=== PATIENT | male | born 1970 | race Caucasian/White ===

== ENCOUNTER 2021-08-13 04:57 | Observation (INO) | payer BC, SELFPAY ==
[2021-08-13] VITALS (13 sets, daily range): BP systolic 103–133; BP diastolic 60–100; PULSE 51–190; RESP 14–21; TEMP 36.2–37.1; O2SAT 95–100; BMI 30.4
--- NOTE | 2021-08-13 | ECHO_ITS ---
Patient Info Name: Tristan Hill Age: 51 years : 1970 Gender: Male Ht: 71 in Wt: 218 lbs BSA: 2.25 m2 HR: 66 bpm BP: 133 / 93 mmHg Heart Rhythm: Sinus Rhythm Technical Quality: Fair Exam Date: 08/13/2021 3:56 PM Exam Location: [facility] Pulmonary Patient Status: Outpatient Admit Date: 08/13/2021 Staff Ordering Physician: Arturo Kauffman MD Medical Planner: Nicole Collins RDCS Attending Provider: Navya Church DO Referring Physician: Daly HEAD; Exam Type: CA echo dop color flow w con Study Info Indications - svt/gfdui-ywdkmwiio-fxsuy Complete two-dimensional, color flow and Doppler transthoracic echocardiogram is performed with contrast to opacify the left ventricle and to improve the deliniation of the left ventricle endocardial borders. Contrast/Agitated Saline Contrast/Ag. Saline: Definity Amount: 3.00 ml Administered By: Nicole Collins RDCS Existing IV Access: Yes IV Access Condition: patent with no signs of infiltration Summary 1. Mild LV enlargement, borderline LVH; ejection fraction about 55%; normal diastolic function. No significant valvular abnormality. Trace TR, RVSP 28 mmHg. Left Ventricle Left ventricular chamber dimension is mildly enlarged. Left ventricular systolic function is normal, estimated at 55-60%. There is no increased left ventricular wall thickness. The left ventricular diastolic function is normal. Right Ventricle Right ventricular chamber dimension is normal. Right ventricular systolic function is normal. Left Atria Left atrial chamber dimension is normal. Right Atria Right atrial chamber dimension is normal. Aortic Valve The aortic valve is trileaflet. There is no aortic valve sclerosis. There is no aortic valve stenosis. There is no aortic valve regurgitation. Pulmonic Valve The pulmonic valve is normal. There is trace pulmonic regurgitation. Mitral Valve The mitral valve has normal leaflets. There is no mitral valve regurgitation. Tricuspid Valve The tricuspid valve leaflets are normal. There is trace tricuspid valve regurgitation. Pericardium/Pleural The pericardium appears epicardial fat pad. There is no pericardial effusion. Inferior Vena Cava Normal inferior vena cava with >50% collapse upon inspiration consistent with normal right atrial pressure, 10 mmHg. Aorta The aortic root size at the sinus of Valsalva is normal. The prox ascending aorta size is normal. Left Ventricular Outflow Tract Name Value Normal LVOT 2D LVOT Diameter 2.32 cm LVOT Doppler LVOT Peak Gradient 3 mmHg LVOT Mean Gradient 1 mmHg LVOT VTI 15.33 cm LVOT VTI/AV VTI Ratio 0.58 LVOT Stroke Volume 64.70 ml LVOT CO 5.44 l/min LVOT CI 2.42 L/min/m2 Pulmonic Valve Name
--- NOTE | ~2021-08-13 | XR_ITS ---
XR chest 2V DATE: 08/13/2021 06:03 INDICATION: Chest pain TECHNIQUE: PA and lateral views COMPARISON: 02/05/2016 2 view chest FINDINGS: Normal heart size. No hilar or mediastinal enlargement. No pulmonary infiltrate or consolid ation, pleural effusion or pulmonary vascular congestion or pneumothorax. Mild levoscoliosis of the thoracic spine. IMPRESSION: No active cardiopulmonary disease Reviewed, dictated and finalized at location A.
--- NOTE | 2021-08-13 05:03 | ECG_ITS ---
Measurements Intervals [place] Rate: 186 P: TN: 0 QRS: 259 QRSD: 98 T: 0 QT: 257 QTc: 453 Interpretive Statements SUPRAVENTRICULAR TACHYCARDIA POSSIBLE RIGHT VENTRICULAR HYPERTROPHY [SOME/ALL OF: PROMINENT R IN V1, LATE TRANSITION, RAD, JED, SSS] CRITICAL TEST RESULT NO PREVIOUS ECG AVAILABLE FOR COMPARISON Electronically Signed On 08-13-2021 15:29:41 CDT by Arturo Kauffman M.D.
[2021-08-13] MEDS: ADENOSINE IV SOLN 6 MG/2 ML VIAL IV PUSH (05:09)
[2021-08-13] MEDS: SODIUM CHLORIDE 0.9% IV 1,000 ML 999 ML (05:10)
[2021-08-13] MEDS: ASPIRIN 81 MG CHEWABLE TABLET 324 MG PO (05:14)
--- NOTE | 2021-08-13 05:19 | ECG_ITS ---
Measurements Intervals [place] Rate: 116 P: 47 W[place]: 160 QRS: -84 QRSD: 95 T: 5 QT: 317 QTc: 442 Interpretive Statements SINUS TACHYCARDIA POSSIBLE LEFT ATRIAL ENLARGEMENT [-0.1mV P-WAVE IN V1/V2] PATTERN CONSISTENT WITH PULMONARY DISEASE LEFT ANTERIOR FASCICULAR BLOCK [QRS AXIS <= -45, QR IN I, RS IN II] COMPARED TO ECG 08/13/2021 05:04:15 SINUS TACHYCARDIA NOW PRESENT Electronically Signed On 08-13-2021 15:29:56 CDT by Arturo Kauffman M.D.
[2021-08-13 05:22] LABS: Hematocrit 48.9 % (42.0-52.0); Mean Corpuscular HGB Conc 32.7 g/dl (32-36); Mean Corpuscular Hemoglobin 29.8 pg (26-34); Mean Corpuscular Volume 91.1 fl (80-100); Mean Platelet Volume 9.4 fl (7.4-10.4); Platelet Count Result 394 k/mm3 (150-375); Red Blood Count 5.37 M/mm3 (4.6-6.20); Red Cell Distribution Width 13.3 % (11.5-14.5); White Blood Count 21.5 K/mm3 (4.5-10.0)
[2021-08-13 05:31] LABS: Partial Thromboplastin Time 27.7 SECONDS (22.3-36.8); Prothrombin Time 12.5 Seconds (11.1-14.7)
[2021-08-13 05:33] LABS: Alanine Aminotransferase 36 U/L (6-50); Albumin Level 4.5 g/dL (3.5-5.1); Alkaline Phosphatase 80 U/L (38-126); Anion Gap 7 mmol/L (8-16); Aspartate Amino Transferase 28 U/L (17-59); Bilirubin,Total 0.1 mg/dL (0.2-1.3); Blood Urea Nitrogen 20 mg/dL (9-20); Calcium 9.2 mg/dL (8.4-10.2); Carbon Dioxide 25 mmol/L (22-30); Chloride 108 mmol/L (98-107); Estimated CRCL calculation 87 ml/min; Estimated Glomerular Filt Rate > 60; Glucose 178 mg/dL (65-110); Potassium 3.8 mmol/L (3.4-5.0); Sodium 140 mmol/L (137-145)
[2021-08-13 05:38] LABS: Band Neutrophils Percent 4 % (0-6); Eosinophils Absolute Manual 0.43 K/mm3 (0.02-0.5); Eosinophils Percent Manual 2 % (0-4); Lymphocytes Absolute Manual 3.44 K/mm3 (1.1-4.5); Monocytes Absolute Manual 1.07 K/mm3 (0.1-0.90); Monocytes Percent Manual 5 % (3-9); Neutrophils Absolute Manual 16.55 K/mm3 (1.3-6.7); Neutrophils Percent Manual 73 % (46-73); Total Cells Counted 100
[2021-08-13 05:39] LABS: Platelet Estimate Adequate (Adequate); Poikilocytosis 1+ (NORMAL)
[2021-08-13 05:57] LABS: Troponin I 0.059 ng/mL (0.000-0.034)
--- NOTE | 2021-08-13 06:20 | ED.GENADULT ---
HPI - General Adult General Chief complaint: Chest Pain Stated complaint: sob, possible heart attack, rapid heart beat Time Seen by Provider: 08/13/21 05:03 History of Present Illness HPI narrative: Patient is a 51-year-old male who presents ER with rapid heart rate and chest pain. Patient reports symptoms began around 3 AM. He feels racing the heart with pressure in his center chest moving up into his neck. No aggravating or alleviating factors. 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 Reports he did have a couple coffee this morning. No excessive caffeine use or abnormal sleep habits. No additional stimulants use. Reports he is in otherwise good health. No fevers or chills or sweats. Related Data Home Medications Medication Instructions Recorded Confirmed No Home Medications 07/17/21 07/17/21 Allergies Allergy/AdvReac Type Severity Reaction Status Date / Time No Known Allergies Allergy Verified 07/17/21 14:15 Review of Systems Review of Systems: All systems reviewed & are unremarkable except as noted in HPI and below Constitutional: Constitutional: Denies chills, Denies fatigue and Denies fever(s) ENT: Denies nasal congestion and Denies sore throat Cardiovascular: Cardiovascular: Reports chest pain, Reports rapid heart rate and Reports radiating jaw, neck or arm pain Respiratory: Respiratory: Denies cough, Denies dyspnea and Denies wheezing Gastrointestinal: Gastrointestinal: Denies abdominal pain, Denies nausea and Denies vomiting Neurologic: Denies syncope, Denies focal weakness and Denies numbness PMFSH Past Medical History Medical History BMI greater than 30 Lateral epicondylitis, left elbow Family History Family History Mother Hypertension Grandparent Hypertension Family history of malignant neoplasm of brain Social History Social History Smoking status: Current every day smoker Tobacco type: cigarettes Alcohol intake: never Exam Narrative: GENERAL: Well-appearing, well-nourished, and in no acute distress. HEAD: Normocephalic, atraumatic. EYES: PERRL and EOMI. CHEST: Clear to auscultation. No respiratory distress. HEART: Tachycardic and regular. Normal peripheral pulses. ABDOMEN: Soft, nontender, nondistended. EXTREMITIES: Normal range of motion. No edema. SKIN: Warm, dry, no rash. NEURO: Alert and oriented x3. PSYCH: Normal mood and affect. Course Course Emergency Course: Discussed case with Dr. Silver with cardiology. Recommends admission to hospitalist service given elevation with blood cell count. Will trend troponin level however he does not feel anticoagulation is warranted at this time given the patient's chest pain-free. Vital Signs Vital signs: Vital Signs Temperature 98.8 F 08/13/21 05:01 Pulse Rate 190 H 08/13/21 05:01 Respiratory Rate 20 08/13/21 05:01 Blood Pressure 120/100 H 08/13/21 05:01 Pulse Oximetry 100 08/13/21 05:01 Oxygen Delivery Room Air 08/13/21 05:01 Temperature 98.8 F 08/13/21 05:01 Pulse Rate 104 H 08/13/21 06:33 Respiratory Rate 18 08/13/21 06:33 Blood Pressure 109/71 08/13/21 06:33 Pulse Oximetry 97 08/13/21 06:33 Oxygen Delivery Room Air 08/13/21 05:01 Medical Decision Making Vital Signs Vital Signs: Vital Signs Temperature 98.8 F 08/13/21 05:01 Pulse Rate 190 H 08/13/21 05:01 Respiratory Rate 20 08/13/21 05:01 Blood Pressure 120/100 H 08/13/21 05:01 Pulse Oximetry 100 08/13/21 05:01 Oxygen Delivery Room Air 08/13/21 05:01 Temperature 98.8 F 08/13/21 05:01 Pulse Rate 104 H 08/13/21 06:33 Respiratory Rate 18 08/13/21 06:33 Blood Pressure 109/71 08/13/21 06:33 Pulse Oximetry 97 08/13/21 06:33 Oxygen Delivery Room Air 08/13/21
[2021-08-13] MEDS: SODIUM CHLORIDE 0.9% IV 1,000 ML 999 ML IV CONT (06:43)
--- NOTE | 2021-08-13 07:52 | PM.IMHP ---
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 Patient states that he felt a fluttering sensation in his chest this morning when his alarm went off to get out of bed around 3 or 4 morning. He said his heart was racing and followed with some pressure in his chest. In the ER, ECG was done showing a narrowed OK interval and Cardiology was consulted. Troponin was slightly elevated however cardiology thought this was likely secondary to the tachycardia and so anticoagulation was not initiated. He is currently chest pain-free, no shortness of breaths, heart rate is normal sinus rhythm in the 80s. He denies fevers or chills. No nausea vomiting or diarrhea. He is currently on no medications. Of note, the patient was recently on antibiotics for a sinus infection and developed C diff. last episode of diarrhea had previously been about 1-2 weeks ago. He did have a episode of diarrhea after eating coconut cream pie yesterday. [facility] Past Medical History Medical History BMI greater than 30 Lateral epicondylitis, left elbow Family History Family History Mother Hypertension Grandparent Hypertension Family history of malignant neoplasm of brain Social History Social History Years smoked: 36 Smoking status: Current every day smoker Tobacco type: cigarettes Alcohol intake: never Substance use: never Spiritual care concerns: No Meds Home Medications and Allergies Home Medications Medication Instructions Recorded Confirmed Type No Home Medications 07/17/21 08/13/21 History Allergies Allergy/AdvReac Type Severity Reaction Status Date / Time No Known Allergies Allergy Verified 07/17/21 14:15 Vital Signs Vital Signs - 24 hr 08/13/21 05:01 08/13/21 05:13 08/13/21 05:15 Temperature 98.8 F Pulse Rate 190 H 112 H 112 H Respiratory Rate 20 21 H 21 H Blood Pressure 120/100 H 128/99 H 124/86 Pulse Oximetry 100 98 97 Oxygen Delivery Room Air 08/13/21 05:30 08/13/21 06:33 08/13/21 07:15 Temperature Pulse Rate 113 H 104 H 102 H Respiratory Rate 19 18 14 Blood Pressure 118/85 109/71 103/78 Pulse Oximetry 95 97 99 Oxygen Delivery Exam Narrative: General: Patient resting comfortably in bed, no acute distress HEENT: Atraumatic, normocephalic, mucous membranes moist CV: Regular rate and rhythm, S1, S2, no murmurs rubs or gallops noted Lungs: Clear to auscultation bilaterally, no rales or crackles noted, no wheezes, good air entry Abdomen: Soft, nontender, nondistended Extremities: Normal to inspection, no edema noted Skin: No rashes noted, no lesions or wounds seen Psych: Euthymic, normal affect Neuro: Cranial nerves 2-12 grossly intact, strength 5/5 upper and lower extremities noted H&P: Results Labs Labs: Short CBC 08/13/21 Range/Units 05:07 WBC 21.5 H (4.5-10.0) K/mm3 Hgb 16.0 (14.0-18.0) g/dL Hct 48.9 (42.0-52.0) % Plt Count 394 H (150-375) k/mm3 BMP 08/13/21 05:07 Sodium 140 Potassium 3.8 Chloride 108 H Carbon Dioxide 25 BUN 20 Creatinine 1.20 Glucose 178 H Calcium 9.2 Cardiac Enzymes 08/13/21 Range/Units 05:07 Troponin I 0.059 H* (0.000-0.034) ng/mL Liver Function 08/13/21 Range/Units 05:07 Total Bilirubin 0.1 L (0.2-1.3) mg/dL AST 28 (17-59) U/L ALT 36 (6-50) U/L Alkaline Phosphatase 80 (38-126) U/L Albumin 4.5 (3.5-5.1) g/dL Assessment and Plan Assessment and plan (1) Elevated troponin: Code(s): R77.8 - Other specified abnormalities of plasma proteins Status: Acute Assessment and Plan: Likely secondary
[2021-08-13 08:38] LABS: Troponin I 0.088 ng/mL (0.000-0.034)
[2021-08-13] MEDS: ENOXAPARIN 40 MG/0.4 ML SYRINGE SUB-Q (09:47)
[2021-08-13 11:35] LABS: Troponin I 0.101 ng/mL (0.000-0.034)
--- NOTE | 2021-08-13 11:37 | ADMGEN ---
This patient, Tristan Hill Sr., was admitted to IMU Room 207-01. Patient/family oriented to hospital policies and general routines including ID bracelet, bed and alarms, visiting hours, pain management, procedures, bathroom and other care routines, personal items, smoking policy, room service/diet, and visiting hours. Information on how to activate the Rapid Response Team has been discussed. Patient/Family are encouraged to report perceived risks to care and to ask questions if they do not understand what they are told or what they should do.
--- NOTE | 2021-08-13 12:22 | ECG_ITS ---
Measurements Intervals [place] Rate: 60 P: 55 [place]: 110 QRS: -45 QRSD: 134 T: 121 QT: 446 QTc: 449 Interpretive Statements SINUS RHYTHM WITH SHORT WA INTERVAL VENTRICULAR PREEXCITATION/WPW COMPARED TO ECG 08/13/2021 05:11:43 SINUS RHYTHM NOW PRESENT VENTRICULAR PREEXCITATION NOW MANIFEST. ACCESSORY PATHWAY WAS CONCEALED DURING SVT EARLIER TODAY Electronically Signed On 08-13-2021 16:31:49 CDT by Arturo Kauffman M.D.
--- NOTE | 2021-08-13 14:48 | PM.CNCAR ---
Assessment and Plan Assessment and plan (1) Idbaa-Xzetaynzl-Flrhe (WPW) syndrome: Code(s): I45.6 - Pre-excitation syndrome Status: Acute (2) SVT (supraventricular tachycardia): Code(s): I47.1 - Supraventricular tachycardia Status: Acute Plan This is a 51-year-old man presenting with AV reciprocating tachycardia narrow QRS SVT this morning. Following cardioversion with adenosine his rhythm settled down and it now becomes manifest that he has an obvious accessory pathway. When he was tachycardic he was obviously conducting antegrade down the AV node and retrograde up the accessory pathway resulting in narrow QRS. In this situation I am going to recommend starting him on some metoprolol and recommend that he consult with an rehab office coordinator for the treatment of choice which would be ablating this accessory pathway. He understands this and has no other questions. I will try to get an echocardiogram done while he is in the hospital to is rule out any structural cardiac problems. He has not otherwise reporting any other cardiac symptoms I do not believe he needs an ischemic workup while he is in the hospital. For some reason a troponin level was drawn in the emergency room it was slightly elevated but I believe this is clearly attributable to the patient having a heart rate of 186 at the time of presentation that was probably going on for at least a couple of hours. Arturo Kauffman MD [facility] History of Present Illness History of Present Illness Consult date/time: 08/13/21 14:48 Reason For Visit: svt Narrative: This is a 51-year-old man who presented to the emergency room this morning with CIS sense of tachycardia/palpitations and some discomfort in the chest that he noticed at about 3:00 a.m. in the morning. 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 This morning when he has alarm went off any soda pop out of bed he states he felt unwell with a sense of lightheadedness. He went into the bathroom and then noticed that his pulse rate was rapid and so he went back to the bed and laid down and felt his pulse his apparently has a pulse oximeter and may recorded his heart rate to be over 180. Then the became concerned and got in the car and came to the emergency room here. Upon arrival he was found to be tachycardic and electrocardiogram showed a regular narrow QRS tachycardia with a heart rate of 186. He was given a dose of adenosine which converted him to sinus tachycardia and then as he slow down in the emergency room a subsequent EKG shows a wider QRS with a short FL interval an obvious delta waves/pre-excitation indicative of Vaikr-Vqkbqiift-Bbvhs syndrome. The patient states that a physician a number of years ago told him that by ECG he had Dihij-Peeytirzh-Lpmzb but it was asymptomatic and required no further treatment or evaluation. He has never had an episode like this previously in his life that he can recall. Review of Systems Constitutional: Constitutional: Reports no additional constitutional complaints Eyes: Eyes: Reports no additional eye complaints ENT: Reports system reviewed and no additional complaints, except as documented Cardiovascular: Cardiovascular: Reports as per HPI and Reports palpitations Respiratory: Respiratory: Reports no additional respiratory complaints Gastrointestinal: Gastrointestinal: Reports no additional gastrointestinal complaints Musculoskeletal: Musculoskeletal: Reports no additional musculoskeletal complaints Integumentary/Breasts: Skin/Breast: Reports system reviewed and no additional complaints, except as docu Neurologic: Reports system reviewed and no additional complaints, except as documented Endocrine: Endocrine: Reports no additional endocrine complaints Hematologic/Lymphatic: Hematologic/Lymphatic: Reports no additional hematologic/lymphatic complaints Allergic/Imm
[2021-08-13] MEDS: PERFLUTREN LIPID MICROSPHERES 1.5 ML VIAL DILUTED TO 10 ML TOTAL VOLUME IV PUSH (16:25)
--- NOTE | 2021-08-13 16:26 | IVDEFINITY ---
Prior to administration of IV Definity the patient was educated on the risks and benefits of the imaging enhancing agent including potential adverse side effects. The patient verbalized understanding. Allergies were verified. No exclusion criteria were identified and at least one of the following inclusion criteria were met: 1) physician request, 2) patient technically difficult to image (per the [place] [employer]ocardi[employer] guidelines of two or more segments not discernable within the apical view), or 3) questionable left ventricular function. ?
--- NOTE | 2021-08-13 18:41 | PC.NURSE ---
Notified Dr. Squires patient has brief moments of Osman into the high 40's, She said to continue with plan of care. Patient is not symptomatic.
[2021-08-13] MEDS: NICOTINE (*PBKC) 21 MG PATCH 1 PATCH TRANSDERM (20:33)
[2021-08-14] VITALS: PULSE 80
[2021-08-14 02:00] VITALS: PULSE 78
[2021-08-14 04:00] VITALS: BP 123/73; PULSE 49; PULSE 53; RESP 18; TEMP 36.4; O2SAT 99
[2021-08-14 06:00] VITALS: PULSE 61
[2021-08-14 08:00] VITALS: BP 132/74; PULSE 60; PULSE 79; RESP 16; TEMP 36.8; O2SAT 96
[2021-08-14] MEDS: METOPROLOL SUCCINATE EXT REL 50 MG TABCR PO (08:23)
[2021-08-14] MEDS: NICOTINE (*PBKC) 21 MG PATCH 1 PATCH TRANSDERM (08:24)
--- NOTE | 2021-08-14 09:13 | PM.PNCARD ---
Progress Note: A&P Assessment and Plan (1) Wghcm-Kwxbobtss-Hstbc (WPW) syndrome: Code(s): I45.6 - Pre-excitation syndrome Status: Acute (2) SVT (supraventricular tachycardia): Code(s): I47.1 - Supraventricular tachycardia Status: Acute Assessment and Plan: Back in sinus rhythm. Plan This is a 51-year-old man presenting with AV reciprocating tachycardia narrow QRS SVT this morning. Following cardioversion with adenosine his rhythm settled down and it now becomes manifest that he has an obvious accessory pathway. When he was tachycardic he was obviously conducting antegrade down the AV node and retrograde up the accessory pathway resulting in narrow QRS. In this situation I am going to recommend starting him on some metoprolol and recommend that he consult with an brush and broom clipper for the treatment. Patient wishes to be referred to [facility]. Referral to Dr. Benjamín Gutierrez electrophysiology at [facility]. This referral is already placed through [facility] system. Echocardiogram is pending. Patient is okay for discharge Subjective Date/time seen: 08/14/21 09:13 Date of service 08/14/2021 51-year-old admitted for SVT/WPW. Date of service 08/14/2021: Feels well today. No chest pain or shortness of breath. No palpitations. Review of Systems Constitutional: Constitutional: Reports no additional constitutional complaints Eyes: Eyes: Reports no additional eye complaints ENT: Reports system reviewed and no additional complaints, except as documented Cardiovascular: Cardiovascular: Reports as per HPI and Reports palpitations Respiratory: Respiratory: Reports no additional respiratory complaints Gastrointestinal: Gastrointestinal: Reports no additional gastrointestinal complaints Musculoskeletal: Musculoskeletal: Reports no additional musculoskeletal complaints Integumentary/Breasts: Skin/Breast: Reports system reviewed and no additional complaints, except as docu Neurologic: Reports system reviewed and no additional complaints, except as documented Endocrine: Endocrine: Reports no additional endocrine complaints and Reports palpitations Hematologic/Lymphatic: Hematologic/Lymphatic: Reports no additional hematologic/lymphatic complaints Allergic/Immunologic: Allergic/Immunologic: Reports no additional allergic/immunologic complaints Exam Const: General: comfortable and no acute distress Other: Pleasant white male relaxing visiting family no distress of any kind HENMT: Mouth: Yes moist mucous membranes Eyes: Sclera: sclerae normal Pupils: Equal, round and reactive pupils present Neck: Neck: supple and no JVD Resp: Effort & Inspection: normal respiratory effort Auscultation: clear to auscultation bilaterally Cardio: Rate: regular rate Rhythm: regular rhythm GI: Auscultation: normal bowel sounds Urinary Catheter: Urinary Catheter: patent and draining Skin: General skin exam: normal color Neuro: Cranial nerves: Yes Equal, round and reactive pupils present Other: Normal cognition Extrem: General: normal to inspection Other: No edema normal distal pulses Objective Data Vital Signs Vital Signs: Vital Signs - 24 hr 08/13/21 12:00 08/13/21 12:00 08/13/21 12:00 Temperature 36.2 C L Pulse Rate 72 92 Respiratory Rate 16 Blood Pressure 133/93 H Pulse Oximetry 99 99 Oxygen Delivery Room Air 08/13/21 16:00 08/13/21 14:00 08/13/21 16:00 Temperature 36.8 C Pulse Rate 90 73 64 Respiratory Rate 16 Blood Pressure 132/79 Pulse Oximetry 96 Oxygen Delivery 08/13/21 16:00 08/13/21 18:00 08/13/21 20:00 Temperature 36.7 C Pulse Rate 58 L 90 Respiratory Rate 18 Blood Pressure 123/77 Pulse Oximetry 99 97 Oxygen Delivery Room Air 08/13/21 20:00 08/13/21 20:00 08/13/21 22:00 Temperature Pulse Rate 51 L 56 L Respiratory Rate Blood Pressure Pulse Oximetry Oxygen Delivery Room Air 08/13/21 23:51
[2021-08-14 10:00] VITALS: PULSE 72
--- NOTE | 2021-08-14 14:13 | PM.DS ---
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 He went to the ER with his racing heart was found to have a slightly elevated troponin and a shortened [place] interval. In the ER, he was given adenosine that slowed his rate enough to show the obvious delta waves. This was thought to be an exacerbation of his Rebsa-Blhdkslhn-Eodjt syndrome cardiology was consulted. Patient was started on a beta-boo and remained stable throughout his stay here. All symptoms resolved. He was rate controlled on metoprolol. He was discharged in good condition with close outpatient follow-up with electrophysiology and to continue his metoprolol. Status at Discharge Functional status at discharge: independent ambulation Overall status at discharge: patient is back to baseline Time Spent with Patient Time attestation: Total time spent providing and/or coordinating discharge services: Time spent: Greater than 30 minutes Exam Narrative: General: Patient resting comfortably in bed, no acute distress HEENT: Atraumatic, normocephalic, mucous membranes moist CV: Regular rate and rhythm, S1, S2, no murmurs rubs or gallops noted Lungs: Clear to auscultation bilaterally, no rales or crackles noted, no wheezes, good air entry Abdomen: Soft, nontender, nondistended Extremities: Normal to inspection, no edema noted Skin: No rashes noted, no lesions or wounds seen Psych: Euthymic, normal affect Neuro: Cranial nerves 2-12 grossly intact, strength 5/5 upper and lower extremities noted Discharge Plan Discharge Attending physician on discharge: Carleen Squires Consulting providers: Valentín Silver Discharging Clinician: Carleen Squires Patient Disposition: Home, Self-Care Activity: as tolerated Diet: as tolerated Discharge Instructions: Follow up with Dr. Gutierrez, Assignment Officer at [facility]. You will need to call to schedule an appointment. Their number is [phone] Patient Instructions: Antibiotic Form, Supraventricular Tachycardia (DC), Nmbwz-Lqetyuikl-Ppjvi Syndrome (GEN) Stand Alone Forms: General Discharge Information Follow-up/Referrals: Valentín Silver MD [Physician] - Discharge Medications: New metoprolol succinate 50 mg Tablet Extended Release 24 Hr 50 mg PO QAM Qty: 30 0RF Date of admission: 08/13/21 06:43 Primary Care Provider: Jamar Wheat Admitting Provider: Navya Church Attending physician on admission: Navya Church Condition: Stable
== END 2021-08-14 10:35 | disposition home or self-care (01) ==
LOC: ANHED 07:19 → ANHIMU 11:36
PROVIDERS: Admitting Provider Student in an Organized Health Care Education/Training Program; Emergency Provider Emergency Medicine; PCP Family Medicine; Visit Provider Student in an Organized Health Care Education/Training Program
DX: I45.6 Pre-excitation syndrome (principal); I47.1 Supraventricular tachycardia; R77.8 Other specified abnormalities of plasma proteins; R07.9 Chest pain, unspecified; F17.210 Nicotine dependence, cigarettes, uncomplicated
CPT/HCPCS: 36415; 71046; 80053; 84484; 85025; 85610; 85730; 93005; 96361; 96372; 96374; 96375; 99291; A9270; C8929; G0378; J0153; J1650; J7030; Q9957

== ENCOUNTER 2021-08-16 11:21 | Outpatient (CLI) | payer BC, SELFPAY ==
[2021-08-16 11:47] LABS: Basophils Absolute Auto 0.1 K/mm3 (0.0-0.1); Basophils Percent Auto 0.7 % (0.2-1.2); Eosinophils Absolute Auto 0.7 K/mm3 (0-0.3); Eosinophils Percent Auto 5.9 % (0-4.4); Hematocrit 47.5 % (42.0-52.0); Hemoglobin 15.6 g/dL (14.0-18.0); Immature Granulocyte Absolute 0.04 K/mm3 (0.00-0.031); Immature Granulocyte Percent A 0.3 % (0-0.5); Lymphocytes Absolute Auto 3.67 K/mm3 (0.9-3.2); Mean Corpuscular HGB Conc 32.8 g/dl (32-36); Mean Corpuscular Hemoglobin 29.8 pg (26-34); Mean Corpuscular Volume 90.6 fl (80-100); Mean Platelet Volume 9.2 fl (7.4-10.4); Monocytes Absolute Auto 0.8 K/mm3 (0.1-0.6); Monocytes Percent Auto 6.7 % (2.6-8.5); Neutrophils Absolute Auto 6.6 K/mm3 (1.3-6.7); Neutrophils Percent Auto 55.4 % (45.5-73.1); Platelet Count Result 338 k/mm3 (150-375); Red Blood Count 5.24 M/mm3 (4.6-6.20); White Blood Count 11.8 K/mm3 (4.5-10.0)
[2021-08-16 11:58] LABS: Anion Gap 7 mmol/L (8-16); Blood Urea Nitrogen 15 mg/dL (9-20); Calcium 9.3 mg/dL (8.4-10.2); Carbon Dioxide 29 mmol/L (22-30); Chloride 104 mmol/L (98-107); Cholesterol 191 mg/dL (0-200); Estimated Glomerular Filt Rate > 60; Glucose 98 mg/dL (65-110); HDL Direct 34 mg/dL; Potassium 4.1 mmol/L (3.4-5.0); Sodium 140 mmol/L (137-145); Triglycerides 102 mg/dL (<150)
[2021-08-16 12:09] LABS: LDL Cholesterol Direct 117 mg/dL
[2021-08-16 12:29] LABS: Prostate Specific Antigen 1.2 ng/mL (< OR = 4.0)
== END 2021-08-16 11:22 | disposition home or self-care (01) ==
LOC: ANHLAB 11:23
PROVIDERS: PCP Family Medicine; Visit Provider Family Medicine
DX: Z13.220 Encounter for screening for lipoid disorders (principal); I45.6 Pre-excitation syndrome; Z12.5 Encounter for screening for malignant neoplasm of prostate
CPT/HCPCS: 36415; 80048; 80061; 84153; 84443; 85025; G0103

== ENCOUNTER 2021-12-06 03:00 | Inpatient (IN) | payer BC, SELFPAY ==
[2021-12-06] VITALS (12 sets, daily range): BP systolic 124–141; BP diastolic 72–95; PULSE 79–120; RESP 16–20; TEMP 36.6–37.5; O2SAT 93–99
--- NOTE | 2021-12-06 | ECHO_ITS ---
Patient Info Name: Tristan Hill Age: 51 years : 1970 Gender: Male Ht: 70 in Wt: 214 lbs BSA: 2.22 m2 HR: 91 bpm BP: 131 / 95 mmHg Heart Rhythm: Sinus Rhythm Technical Quality: Fair Exam Date: 12/06/2021 1:01 PM Exam Location: [facility] Patient Status: Inpatient Admit Date: 12/06/2021 Staff Ordering Physician: Avery Briceno MD [employer] Rolling Machine Operator: Nicole Collins RDCS Attending Provider: Avery Briceno MD Exam Type: CA echo limited w contrast Study Info Indications - elevated troponin Limited two-dimensional transthoracic echocardiogram is performed with contrast. Contrast/Agitated Saline Contrast/Ag. Saline: Definity Amount: 2.00 ml Administered By: Nicole Collins RDCS Existing IV Access: Yes IV Access Condition: patent with no signs of infiltration Summary 1. Limited study done. 2. Left ventricular systolic function is normal, estimated at 55-60%. 3. Left ventricular chamber dimension is mildly enlarged. 4. Right ventricular systolic function is normal. 5. There is mild tricuspid valve regurgitation. Left Ventricle Left ventricular chamber dimension is mildly enlarged. Left ventricular systolic function is normal, estimated at 55-60%. There is no increased left ventricular wall thickness. Right Ventricle Right ventricular chamber dimension is normal. Right ventricular systolic function is normal. Left Atria Left atrial chamber dimension is normal. Right Atria Right atrial chamber dimension is normal. Aortic Valve The aortic valve is not well visualized. Mitral Valve The mitral valve has not well visualized. Tricuspid Valve The tricuspid valve leaflets are not well visualized. There is mild tricuspid valve regurgitation. Pericardium/Pleural The pericardium appears epicardial fat pad. There is no pericardial effusion. Tricuspid Valve Name Value Normal TV Regurgitation Doppler TR Peak Velocity 189 cm/s TR Peak Gradient 14 mmHg Estimated PAP/RSVP RV Systolic Pressure 24 mmHg <36 Ventricles Name Value Normal LV Dimensions 2D/MM IVS Diastolic Thickness (2D) 1.0 cm 0.6-1.0 LVID Diastole (2D) 5.5 cm 4.2-5.8 LVIW Diastolic Thickness (2D) 1.0 cm 0.6-1.0 LVID Systole (2D) 3.8 cm 2.5-4.0 LV Mass (2D Cubed) 212.05 g 88.00-224.00 LV Mass Index (2D Cubed) 96 g/m2 49-115 Relative Wall Thickness (2D) 0.36 LV Fractional Shortening/Ejection Fraction 2D/MM LV Fractional Shortening (2D) 31 % 25-43 LV EF (2D Teicholz) 57 % 52-72 LV Diastolic
--- NOTE | ~2021-12-06 | US_ITS ---
EXAMINATION: US venous doppler [facility] DATE: 12/07/2021 08:49 INDICATION: Chest pain. Acute pulmonary emboli. TECHNIQUE: Grayscale ultrasound images without and with compression and Doppler ultrasound images of the bilateral lower extremity veins were obtained. COMPARISON: None. FINDINGS: The visualized portions of right common femoral vein, profunda (deep) femoral vein, femoral vein, pop liteal vein, peroneal veins, posterior tibial veins, and greater saphenous vein outflow are patent. The visualized portions of left common femoral vein, profunda femoral vein, femoral vein, popliteal v ein, peroneal veins, posterior tibial veins, and greater saphenous vein outflow are patent. IMPRESSION: 1. No deep venous thrombosis. Reviewed, dictated and finalized at location D.
--- NOTE | ~2021-12-06 | CT_ITS ---
EXAMINATION: CTA chest PE protocol DATE: 12/06/2021 06:15 INDICATION: Severe sharp right-sided chest pain radiating to the back. TECHNIQUE: Computed tomography (CT) pulmonary angiogram of the chest was performed with 100 mL Omnipa que-350 intravenous contrast. Additional 3D reconstructions utilizing coronal maximum intensity proje ction (MIP) were performed. The dose-length product was 768.78 mGy-cm. COMPARISON: None FINDINGS: Excellent contrast opacification of the pulmonary arteries. There is mild streak artifact from dense contrast in the superior vena cava and right atrium. Mild scattered respiratory motion artifact which does not significantly limit evaluation. There pulmonary arterial filling defects consistent with pu lmonary emboli in the lateral basilar and posterior basilar pulmonary arteries with complete occlusio n of the. The support more peripheral subsegmental pulmonary arteries in both segments. Geographic re gion of groundglass opacity in the periphery of the affected segments which could represent atelectas is or secondary pulmonary infarct. There is an additional round and discoid atelectasis at the latera l basilar segment of the right lower lobe containing a few small calcified nodules consistent with ol d granulomatous disease. No other pulmonary emboli identified in the remainder of the lungs. Mild emp hysema is seen at the apices. Tiny right pleural effusion. Heart size is normal. There is no leftward bowing of the ventricular septum to suggest right heart strain. No pericardial effusion. Thoracic ao rta is normal in caliber with no dissection. Mild likely reactive right hilar lymphadenopathy. Small sliding-type hiatal hernia. Diffuse hepatic steatosis. Schmorl's nodes and mild anterior wedging at T 4 and T5 as well as T11 and T12. IMPRESSION: 1. Pulmonary emboli in the posterior basilar and lateral basilar segments of the right lower lobe wit h associated atelectasis and possible pulmonary infarct in the affected segments. 2. Likely secondary tiny right pleural effusion and mild likely reactive right hilar lymphadenopathy. Reviewed, dictated and finalized at location A. IMPRESSION: 1. Pulmonary emboli in the posterior basilar and lateral basilar segments of th e right lower lobe with associated atelectasis and possible pulmonary infarct i n the affected segments. 2. Likely secondary tiny right pleural effusion and mild likely reactive right hilar lymphadenopathy.
--- NOTE | ~2021-12-06 | XR_ITS ---
EXAMINATION: XR chest 1V portable DATE: 12/06/2021 05:05 INDICATION: Right-sided chest pain post heart ablation TECHNIQUE: frontal view of the chest was obtained. COMPARISON: Chest radiograph dated 08/13/[address] dated 12/06/2021 FINDINGS: Mild streaky opacities at the lateral right lung base which correspond to a region of atelectasis on the prior CT potentially related to right lower lobar pulmonary emboli also evident on the prior CT. Remainder of the lungs are clear. No pulmonary edema, pneumothorax or discernible pleural effusion. T he cardiomediastinal silhouette is normal. IMPRESSION: 1. Mild atelectasis at the right lung base which may be related to the presence of pulmonary emboli i n the basilar right lower lobe seen on subsequent CT. Reviewed, dictated and finalized at location A. IMPRESSION: 1. Mild atelectasis at the right lung base which may be related to the presence of pulmonary emboli in the basilar right lower lobe seen on subsequent CT.
--- NOTE | 2021-12-06 03:06 | ECG_ITS ---
Measurements Intervals [place] Rate: 120 P: 53 MA: 159 QRS: 251 QRSD: 94 T: 4 QT: 305 QTc: 433 Interpretive Statements SINUS TACHYCARDIA COMPARED TO ECG 08/13/2021 12:35:58 SINUS TACHYCARDIA NOW PRESENT VENTRICULAR PREEXCITATION NO LONGER SEEN Electronically Signed On 12-06-2021 17:17:55 CDT by Daiana Esparza M.D.
[2021-12-06 05:07] LABS: Basophils Absolute Auto 0.1 K/mm3 (0.0-0.1); Basophils Percent Auto 0.4 % (0.2-1.2); Eosinophils Absolute Auto 0.2 K/mm3 (0-0.3); Eosinophils Percent Auto 1.5 % (0-4.4); Hematocrit 47.6 % (42.0-52.0); Hemoglobin 15.7 g/dL (14.0-18.0); Immature Granulocyte Absolute 0.07 K/mm3 (0.00-0.031); Immature Granulocyte Percent A 0.4 % (0-0.5); Lymphocytes Absolute Auto 2.24 K/mm3 (0.9-3.2); Lymphocytes Percent Auto 14.3 % (18.3-44.2); Mean Corpuscular Hemoglobin 29.5 pg (26-34); Mean Corpuscular Volume 89.5 fl (80-100); Monocytes Absolute Auto 1.3 K/mm3 (0.1-0.6); Monocytes Percent Auto 8.1 % (2.6-8.5); Neutrophils Absolute Auto 11.8 K/mm3 (1.3-6.7); Neutrophils Percent Auto 75.3 % (45.5-73.1); Platelet Count Result 309 k/mm3 (150-375); Red Blood Count 5.32 M/mm3 (4.6-6.20); Red Cell Distribution Width 13.2 % (11.5-14.5); White Blood Count 15.6 K/mm3 (4.5-10.0)
[2021-12-06 05:21] LABS: Alanine Aminotransferase 21 U/L (6-50); Albumin Level 4.6 g/dL (3.5-5.1); Alkaline Phosphatase 65 U/L (38-126); Anion Gap 11 mmol/L (8-16); Aspartate Amino Transferase 21 U/L (17-59); Bilirubin,Total 0.6 mg/dL (0.2-1.3); Blood Urea Nitrogen 12 mg/dL (9-20); Calcium 9.7 mg/dL (8.4-10.2); Carbon Dioxide 28 mmol/L (22-30); Chloride 102 mmol/L (98-107); Estimated CRCL calculation 90 ml/min; Estimated Glomerular Filt Rate > 60; Glucose 126 mg/dL (65-110); Potassium 4.3 mmol/L (3.4-5.0); Sodium 141 mmol/L (137-145)
[2021-12-06 05:37] LABS: NT Pro B Type Natriuretic Pept 82 pg/mL (5-100); Troponin I 0.051 ng/mL (0.000-0.034)
[2021-12-06 05:43] LABS: D Dimer 0.69 ug/mL (<0.48)
--- NOTE | 2021-12-06 06:05 | ED.GENADULT ---
HPI - General Adult General Chief complaint: Unspecified Stated complaint: rt flank pain Time Seen by Provider: 12/06/21 04:33 History of Present Illness HPI narrative: 51-year-old male with history of WPW with recent ablation at [place] 3 days ago presents with 1 day of severe pain to his right chest, which seems to radiate to his back, with difficulty breathing especially with deep breaths. Related Data Allergies Allergy/AdvReac Type Severity Reaction Status Date / Time No Known Allergies Allergy Verified 08/16/21 08:03 Review of Systems Review of Systems: CONST: No fever. HEENT: No sore throat C/V: Right-sided chest pain RESP: Difficulty breathing GI: No abdominal pain : No dysuria. M/S: No joint pain. SKIN: No rash. NEURO: [No focal numbness or weakness] PSYCH: [No depression] [facility] Past Medical History Medical History (Updated 12/06/21 @ 07:23 by Ju Coyne MD) BMI 29.0-29.9,adult BMI greater than 30 Lateral epicondylitis, left elbow Surgical History Surgical History (Updated 12/06/21 @ 06:07 by Ju Coyne MD) H/O cardiac radiofrequency ablation Family History Family History Mother Hypertension Grandparent Hypertension Family history of malignant neoplasm of brain Social History Social History Years smoked: 36 Smoking status: Current every day smoker (1 1/2 ppd) Tobacco type: cigarettes Additional smoking assessment comments: pt has cut back to about 1-2 a day Alcohol intake: never Substance use: never Spiritual care concerns: No Exam Narrative: EXAMINATION OF ORGAN SYSTEMS/BODY AREAS: Constitutional: Vital signs per nursing GENERAL: Appears slightly uncomfortable in bed HEAD: Normal with no signs of head trauma. EYES: EOMI, conjunctiva normal ENT: Hearing grossly intact LUNGS: Nonlabored breathing; clear to auscultation bilaterally HEART: Tachycardic ABD: [Soft], [nontender to palpation] EXT: Normal range of motion; normal radial pulses bilaterally and pedal pulses bilaterally SKIN: [No rashes or lesions.] NEURO: [Alert and oriented x 3. No gross focal sensory or strength deficits.] PSYCH: Normal affect Course Vital Signs Vital signs: Vital Signs Temperature 97.9 F 12/06/21 03:15 Pulse Rate 120 H 12/06/21 03:15 Respiratory Rate 18 12/06/21 03:15 Blood Pressure 141/82 H 12/06/21 03:15 Pulse Oximetry 97 12/06/21 03:15 Oxygen Delivery Room Air 12/06/21 03:15 Temperature 97.9 F 12/06/21 03:15 Pulse Rate 90 12/06/21 07:18 Respiratory Rate 18 12/06/21 07:18 Blood Pressure 125/85 12/06/21 07:18 Pulse Oximetry 97 12/06/21 07:18 Oxygen Delivery Room Air 12/06/21 03:15 Medical Decision Making MDM Narrative Medical decision making narrative: ED COURSE AND MEDICAL DECISION MAKIN-year-old male presenting with chest pain. EKG done in triage negative for acute ischemic changes. Cardiac workup is initiated. EKG: Performed in triage and interpreted by me. Sinus tachycardia. Rate 120. Normal axis. SD normal. QRS duration normal. QTc normal. No pathologic Q waves. No ST segment elevation or depression to suggest acute ischemia. Differential includes ACS/DE, post ablation complication, PE, dissection, pneumonia. Labs notable for elevated D-dimer and troponin, possibly secondary to ablation, CTA chest is ordered, aspirin provided. CT-PE notable for PE with infarcts; d/w hospitalist for admission, lovenox started. Vital Signs Vital Signs: Vital Signs Temperature 97.9 F 12/06/21 03:15 Pulse Rate 120 H 12/06/21 03:15 Respiratory Rate 18 12/06/21 03:15 Blood Pressure 141/82 H 12/06/21 03:15 Pulse Oximetry 97 12/06/21 03:15 Oxygen Delivery Room Air 12/06/21 03:15 Temperature 97.9 F 12/06/21 03:15 Pulse Rate 90 12/06/21 07:18 Respiratory Rate 18 12/06/21 07:18 Blood Pressure 125/85 12/06
[2021-12-06 06:39] LABS: SARS-CoV-2 RNA PCR Negative
[2021-12-06] MEDS: ASPIRIN 81 MG CHEWABLE TABLET 324 MG PO (07:19)
[2021-12-06] MEDS: MORPHINE SULFATE (*CRX) 4 MG/ML INJ IV PUSH (07:19)
[2021-12-06 07:41] LABS: Troponin I 0.052 ng/mL (0.000-0.034)
[2021-12-06] MEDS: LACTATED RINGERS 1,000 ML 999 ML IV CONT (07:41)
[2021-12-06] MEDS: ENOXAPARIN 100 MG/ML SYRINGE SUB-Q ×2 (07:42→20:43)
--- NOTE | 2021-12-06 09:34 | ADMGEN ---
This patient, Tristan Hill Sr., was admitted to IMU Room 231-01 AT 0830. Patient/family oriented to hospital policies and general routines including ID bracelet, bed and alarms, visiting hours, pain management, procedures, bathroom and other care routines, personal items, smoking policy, room service/diet, and visiting hours. Information on how to activate the Rapid Response Team has been discussed. Patient/Family are encouraged to report perceived risks to care and to ask questions if they do not understand what they are told or what they should do.
[2021-12-06] MEDS: HYDROcodone/acetaminophen (*CRX) 5-325 MG TABLET 1 TAB PO (11:57)
--- NOTE | 2021-12-06 12:59 | PM.IMHP ---
H&P: HPI History of Present Illness Date/Time: 12/06/21 12:59 Chief Complaint: Right flank pain Narrative: This is a 51 year old male patient who had a ambulation proximally 3 days ago at [place] for WPW. The patient stated that he had right shoulder pain afterwards but he thought that it was just the way that he had been laying on the table. Last night he started to have severe right chest pain it radiated to his back and is having difficulty breathing and taking deep breaths. The only medication that the patient takes now as aspirin. He had been on metoprolol for the WPW but was taken off of that since he had the ablation. Patient's D-dimer was only mildly elevated at 0.69. His troponin is 0.05 to however patient appears to be chronically elevated and this appears to be his baseline. The patient was negative for COVID. Chest x-ray was read as mild atelectasis at the right lung bases which may recur be related to the presence of pulmonary emboli in the basilar right lower lobe seen on subsequent CT. Chest CT was read as pulmonary emboli in the posterior basilar and lateral basilar segments of the right lower lobe with associated atelectasis and possible pulmonary infarct in the affected segments. Likely secondary tiny right pleural effusion and mild likely reactive right hilar lymphadenopathy. An echo has been performed but her awaiting the official read. The patient was started on subcu Lovenox and given morphine in the emergency room. The patient was given IV fluids and an aspirin as well. The patient initially was admitted to observation but has been changed to inpatient on the date of service of 12/06/2021. Review of Systems Review of Systems: See HPI All systems reviewed & are unremarkable except as noted in HPI and below Constitutional: Constitutional: Reports as per HPI and Reports no additional constitutional complaints Eyes: Eyes: Reports as per HPI and Reports no additional eye complaints ENT: Reports system reviewed and no additional complaints, except as documented and Reports Normal hearing present Cardiovascular: Cardiovascular: Reports no additional cardiovascular complaints Respiratory: Respiratory: Reports no additional respiratory complaints and Reports no additional respiratory complaints Gastrointestinal: Gastrointestinal: Reports as per HPI and Reports no additional gastrointestinal complaints Musculoskeletal: Musculoskeletal: Reports no additional musculoskeletal complaints Integumentary/Breasts: Skin/Breast: Reports system reviewed and no additional complaints, except as docu and Reports as per HPI Neurologic: Reports system reviewed and no additional complaints, except as documented, Reports as per HPI and Reports Normal hearing present Psychiatric: Psychiatric: Reports no additional psychiatric complaints and Reports as per HPI Endocrine: Endocrine: Reports no additional endocrine complaints Hematologic/Lymphatic: Hematologic/Lymphatic: Reports no additional hematologic/lymphatic complaints Allergic/Immunologic: Allergic/Immunologic: Reports no additional allergic/immunologic complaints [facility] Past Medical History Medical History (Updated 12/06/21 @ 16:28 by Catrina Renteria NP) BMI 29.0-29.9,adult BMI greater than 30 Elevated troponin Lateral epicondylitis, left elbow Qgkuz-Mdtvriqzv-Fndbt (WPW) syndrome Surgical History Surgical History (Updated 12/06/21 @ 16:29 by Catrina Renteria NP) H/O cardiac radiofrequency ablation History of tonsillectomy and adenoidectomy History of uvulectomy Family History Family History Mother Hypertension Grandparent Hypertension Family history of malignant neoplasm of brain Social History Social History (Updated 12/06/21 @ 16:30 by Catrina Renteria NP) Social History: The patient is and lives with his . They have 2 children. 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 He rarely drinks a
[2021-12-06] MEDS: PERFLUTREN LIPID MICROSPHERES 1.5 ML VIAL DILUTED TO 10 ML TOTAL VOLUME IV PUSH (13:10)
--- NOTE | 2021-12-06 13:10 | IVDEFINITY ---
Prior to administration of IV Definity the patient was educated on the risks and benefits of the imaging enhancing agent including potential adverse side effects. The patient verbalized understanding. Allergies were verified. No exclusion criteria were identified and at least one of the following inclusion criteria were met: 1) physician request, 2) patient technically difficult to image (per the [place] [employer]chocardi[employer] guidelines of two or more segments not discernable within the apical view), or 3) questionable left ventricular function. ?
--- NOTE | 2021-12-06 13:35 | PCCARD ---
Echo exam modified to Limited echo. Spoke to Connie and Limited echo exam approved,per: Catrina Renteria. Nicole Collins
[2021-12-06] MEDS: MORPHINE SULFATE (*CRX) 2 MG/ML INJ IV PUSH (14:20)
[2021-12-06 17:54] LABS: Troponin I 0.039 ng/mL (0.000-0.034)
[2021-12-06] MEDS: MORPHINE SULFATE (*CRX) 2 MG/ML INJ 4 MG IV PUSH (20:37)
[2021-12-07] VITALS (12 sets, daily range): BP systolic 125–159; BP diastolic 78–98; PULSE 80–124; RESP 16–22; TEMP 36.3–37.4; O2SAT 94–99
[2021-12-07] MEDS: HYDROcodone/acetaminophen (*CRX) 5-325 MG TABLET 1 TAB PO ×3 (00:12→17:38)
[2021-12-07] MEDS: MORPHINE SULFATE (*CRX) 2 MG/ML INJ 4 MG IV PUSH ×3 (02:57→11:08)
[2021-12-07 04:36] LABS: Basophils Percent Auto 0.3 % (0.2-1.2); Eosinophils Absolute Auto 0.1 K/mm3 (0-0.3); Eosinophils Percent Auto 0.3 % (0-4.4); Hematocrit 42.4 % (42.0-52.0); Hemoglobin 14.3 g/dL (14.0-18.0); Immature Granulocyte Absolute 0.06 K/mm3 (0.00-0.031); Immature Granulocyte Percent A 0.4 % (0-0.5); Lymphocytes Absolute Auto 2.22 K/mm3 (0.9-3.2); Mean Corpuscular HGB Conc 33.7 g/dl (32-36); Mean Corpuscular Hemoglobin 30.1 pg (26-34); Mean Corpuscular Volume 89.3 fl (80-100); Mean Platelet Volume 8.9 fl (7.4-10.4); Monocytes Absolute Auto 1.4 K/mm3 (0.1-0.6); Monocytes Percent Auto 9.6 % (2.6-8.5); Neutrophils Percent Auto 74.4 % (45.5-73.1); Platelet Count Result 285 k/mm3 (150-375); Red Blood Count 4.75 M/mm3 (4.6-6.20); Red Cell Distribution Width 13.1 % (11.5-14.5); White Blood Count 14.8 K/mm3 (4.5-10.0)
[2021-12-07 05:15] LABS: Alanine Aminotransferase 135 U/L (6-50); Albumin Level 4.3 g/dL (3.5-5.1); Alkaline Phosphatase 88 U/L (38-126); Anion Gap 8 mmol/L (8-16); Aspartate Amino Transferase 92 U/L (17-59); Bilirubin,Total 1.2 mg/dL (0.2-1.3); Blood Urea Nitrogen 12 mg/dL (9-20); CRP 16.2 mg/dL (<1.0); Calcium 9.2 mg/dL (8.4-10.2); Carbon Dioxide 26 mmol/L (22-30); Chloride 101 mmol/L (98-107); Estimated CRCL calculation 90 ml/min; Estimated Glomerular Filt Rate > 60; Glucose 119 mg/dL (65-110); Potassium 3.9 mmol/L (3.4-5.0); Sodium 135 mmol/L (137-145)
[2021-12-07] MEDS: ENOXAPARIN 100 MG/ML SYRINGE SUB-Q (09:07)
[2021-12-07] MEDS: ASPIRIN 81 MG CHEWABLE TABLET PO (09:07)
[2021-12-07] MEDS: ENOXAPARIN 60 MG/0.6 ML SYRINGE SUB-Q (10:39)
--- NOTE | 2021-12-07 14:56 | PM.IMPN ---
Progress Note: A&P Assessment and Plan (1) Pulmonary embolism: Code(s): I26.99 - Other pulmonary embolism without acute cor pulmonale Status: Acute Assessment and Plan: -most likely provoked by the radiofrequency ablation for his wPW that he had approximately 3 days ago. -continue with subQ Lovenox for now. Will switch it to Eliquis. -troponins were elevated but it appears that he is at his baseline. -a limited echo was ordered today. It was read as the following 1. Limited study done. ? 2. Left ventricular systolic function is normal, estimated at 55-60%. ? 3. Left ventricular chamber dimension is mildly enlarged. ? 4. Right ventricular systolic function is normal. ? 5. There is mild tricuspid valve regurgitation. Last echo on 08/13 was read as a following 1. Mild LV enlargement, borderline LVH; ejection fraction about 55%; normal diastolic function.? No significant valvular abnormality.? Trace TR, RVSP 28 mmHg. (2) Elevated troponin: Code(s): R77.8 - Other specified abnormalities of plasma proteins Status: Acute Assessment and Plan: -could be related to the PE. -however this appears to be chronic and he is at his baseline. -continue to trend. Plan # pleuritic chest pain still intractable. IV p.r.n.. Increase [place] to 7.5 Subjective Date/time seen: 12/07/21 14:56 Interval history: This is a 51 year old male patient who had a ambulation proximally 3 days ago at [place] for WPW.? The patient stated that he had right shoulder pain afterwards but he thought that it was just the way that he had been laying on the table.? Last night he started to have severe right chest pain it radiated to his back and is having difficulty breathing and taking deep breaths.? The only medication that the patient takes now as aspirin.? He had been on metoprolol for the WPW but was taken off of that since he had the ablation.? Patient's D-dimer was only mildly elevated at 0.69.? His troponin is 0.05 to however patient appears to be chronically elevated and this appears to be his baseline.? The patient was negative for COVID.? Chest x-ray was read as mild atelectasis at the right lung bases which may recur be related to the presence of pulmonary emboli in the basilar right lower lobe seen on subsequent CT.? Chest CT was read as pulmonary emboli in the posterior basilar and lateral basilar segments of the right lower lobe with associated atelectasis and possible pulmonary infarct in the affected segments.? Likely secondary tiny right pleural effusion and mild likely reactive right hilar lymphadenopathy.? An echo has been performed but her awaiting the official read.? The patient was started on subcu Lovenox and given morphine in the emergency room.? The patient was given IV fluids and an aspirin as well.? The patient initially was admitted to observation but has been changed to inpatient on the date of service of 12/06/2021. Review of Systems Review of Systems: All systems reviewed & are unremarkable except as noted in HPI and below Exam Narrative: GENERAL: The patient is well developed, not in acute distress HEENT: Nonicteric sclerae, PERRLA, EOMI. Oropharynx clear. Moist mucous membranes. Conjunctivae appear well perfused. CHEST: Chest wall is nontender. HEART: Regular rate and rhythm without murmur, rubs, or gallops LUNGS: Clear to auscultation bilaterally. no respiratory distress ABDOMEN: Soft, positive bowel sounds, non-tender, no organomegaly. SKIN: No rash, no excessive bruising, petechiae, or purpura. NEUROLOGIC: Cranial nerves II-XII intact, alert and oriented x 3, no gross motor deficits EXTREMITIES: no edema, cyanosis or clubbing Objective Data Vital Signs Vital Signs: Vital Signs - 24 hr 12/06/21 16:00 12/06/21 16:00 12/06/21 16:00 Temperature 99.5 F Pulse Rate 80 79 Respiratory Rate 20 Blood Pressure 134/72 Pulse Oximetry 93 Oxygen Delivery Room Air 12/06/21 18:00 12/06/21 20:00
[2021-12-07] MEDS: MORPHINE SULFATE (*CRX) 4 MG/ML INJ IV PUSH (20:07)
[2021-12-07] MEDS: APIXABAN 5 MG TABLET 10 MG PO (20:09)
[2021-12-08] VITALS (9 sets, daily range): BP systolic 130–142; BP diastolic 70–84; PULSE 69–114; RESP 20–22; TEMP 36.4–37.4; O2SAT 95–96
[2021-12-08 04:19] LABS: Basophils Percent Auto 0.4 % (0.2-1.2); Eosinophils Absolute Auto 0.2 K/mm3 (0-0.3); Eosinophils Percent Auto 2.1 % (0-4.4); Hematocrit 39.9 % (42.0-52.0); Hemoglobin 13.3 g/dL (14.0-18.0); Immature Granulocyte Absolute 0.03 K/mm3 (0.00-0.031); Immature Granulocyte Percent A 0.3 % (0-0.5); Lymphocytes Absolute Auto 1.71 K/mm3 (0.9-3.2); Lymphocytes Percent Auto 16.4 % (18.3-44.2); Mean Corpuscular HGB Conc 33.3 g/dl (32-36); Mean Corpuscular Hemoglobin 29.4 pg (26-34); Mean Corpuscular Volume 88.3 fl (80-100); Mean Platelet Volume 8.9 fl (7.4-10.4); Monocytes Absolute Auto 1.1 K/mm3 (0.1-0.6); Monocytes Percent Auto 10.2 % (2.6-8.5); Neutrophils Absolute Auto 7.4 K/mm3 (1.3-6.7); Neutrophils Percent Auto 70.6 % (45.5-73.1); Platelet Count Result 266 k/mm3 (150-375); Red Blood Count 4.52 M/mm3 (4.6-6.20); Red Cell Distribution Width 12.6 % (11.5-14.5); White Blood Count 10.4 K/mm3 (4.5-10.0)
[2021-12-08 04:44] LABS: Alanine Aminotransferase 237 U/L (6-50); Alkaline Phosphatase 88 U/L (38-126); Anion Gap 11 mmol/L (8-16); Aspartate Amino Transferase 143 U/L (17-59); Bilirubin,Total 0.7 mg/dL (0.2-1.3); Blood Urea Nitrogen 11 mg/dL (9-20); Calcium 8.9 mg/dL (8.4-10.2); Carbon Dioxide 28 mmol/L (22-30); Chloride 99 mmol/L (98-107); Estimated CRCL calculation 100 ml/min; Estimated Glomerular Filt Rate > 60; Glucose 129 mg/dL (65-110); Potassium 3.7 mmol/L (3.4-5.0); Sodium 138 mmol/L (137-145)
[2021-12-08] MEDS: APIXABAN 5 MG TABLET 10 MG PO (08:49)
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
[2021-12-20 19:27] LABS: Factor V (Leiden) Mutation NEGATIVE
== END 2021-12-08 12:29 | disposition home or self-care (01) | DRG 176 ==
LOC: ANHED 07:23 → ANHIMU 07:51
PROVIDERS: Nurse Practitioner; Admitting Provider Internal Medicine; Emergency Provider Emergency Medicine; PCP Family Medicine; Visit Provider Internal Medicine
DX: I26.99 Other pulmonary embolism without acute cor pulmonale (principal); I45.6 Pre-excitation syndrome; R77.8 Other specified abnormalities of plasma proteins; R07.81 Pleurodynia; Z20.822 Contact with and (suspected) exposure to COVID-19; F17.210 Nicotine dependence, cigarettes, uncomplicated; M77.12 Lateral epicondylitis, left elbow
CPT/HCPCS: 36415; 71045; 71275; 80053; 81241; 81291; 83735; 83880; 84443; 84484; 85025; 85380; 86038; 86140; 93005; 93308; 93970; 96361; 96372; 96374; 99285; A9270; C8924; C8929; C9803; G0378; J1650; J2270; J7120; Q9957; Q9967; U0003; U0005

== ENCOUNTER 2021-12-18 12:29 | Emergency (ER) | payer OTHER, BC, SELFPAY ==
--- NOTE | ~2021-12-18 | CT_ITS ---
EXAMINATION: CT brain wo con INDICATION: Head injury COMPARISON: None TECHNIQUE: Standard unenhanced head CT. The dose-length product (DLP) was 605.33 mGy-cm. The mA was a djusted according to patient size. Iterative reconstruction technique was employed. FINDINGS: There is no intracranial hemorrhage, acute infarction, or abnormal mass lesion. The ventric les are normal. There is no abnormal mass effect or midline shift. The spence-white matter differentiat ion is normal. The basal cisterns are patent. The orbits are normal. There is mild mucosal thickening of the paranasal sinuses. IMPRESSION: 1. No acute intracranial abnormality. Reviewed, dictated and finalized at location A.
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
[2021-12-18 12:33] VITALS: BP 155/93; PULSE 97; RESP 18; TEMP 36.6; O2SAT 99
[2021-12-18 13:34] VITALS: BP 156/105; PULSE 84; RESP 18; O2SAT 99
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
[2021-12-18 13:50] LABS: Basophils Absolute Auto 0.1 K/mm3 (0.0-0.1); Basophils Percent Auto 0.6 % (0.2-1.2); Eosinophils Absolute Auto 0.4 K/mm3 (0-0.3); Eosinophils Percent Auto 3.9 % (0-4.4); Hematocrit 43.1 % (42.0-52.0); Hemoglobin 14.4 g/dL (14.0-18.0); Immature Granulocyte Absolute 0.06 K/mm3 (0.00-0.031); Immature Granulocyte Percent A 0.5 % (0-0.5); Lymphocytes Absolute Auto 2.82 K/mm3 (0.9-3.2); Lymphocytes Percent Auto 25.1 % (18.3-44.2); Mean Corpuscular HGB Conc 33.4 g/dl (32-36); Mean Corpuscular Volume 89.8 fl (80-100); Mean Platelet Volume 8.4 fl (7.4-10.4); Monocytes Absolute Auto 0.7 K/mm3 (0.1-0.6); Monocytes Percent Auto 6.6 % (2.6-8.5); Neutrophils Absolute Auto 7.1 K/mm3 (1.3-6.7); Neutrophils Percent Auto 63.3 % (45.5-73.1); Platelet Count Result 492 k/mm3 (150-375); Red Cell Distribution Width 12.4 % (11.5-14.5); White Blood Count 11.2 K/mm3 (4.5-10.0)
[2021-12-18 14:02] LABS: Alanine Aminotransferase 35 U/L (6-50); Albumin Level 4.5 g/dL (3.5-5.1); Alkaline Phosphatase 70 U/L (38-126); Anion Gap 9 mmol/L (8-16); Aspartate Amino Transferase 24 U/L (17-59); Bilirubin,Total 0.2 mg/dL (0.2-1.3); Blood Urea Nitrogen 13 mg/dL (9-20); Calcium 9.5 mg/dL (8.4-10.2); Carbon Dioxide 30 mmol/L (22-30); Chloride 100 mmol/L (98-107); Estimated CRCL calculation 100 ml/min; Estimated Glomerular Filt Rate > 60; Glucose 105 mg/dL (65-110); Potassium 4.1 mmol/L (3.4-5.0); Sodium 139 mmol/L (137-145)
[2021-12-18 14:08] LABS: Partial Thromboplastin Time 28.8 SECONDS (22.3-36.8)
[2021-12-18 15:25] VITALS: BP 144/103; PULSE 90; RESP 18; O2SAT 98
[2021-12-18 16:12] VITALS: BP 141/93; PULSE 86; RESP 18; O2SAT 98
== END 2021-12-18 16:48 | disposition home or self-care (01) ==
PROVIDERS: Physician Assistant; Emergency Provider Preventive Medicine Aerospace Medicine; PCP Family Medicine
DX: S63.602A Unspecified sprain of left thumb, initial encounter (principal); V44.5XXA Car driver injured in collision with heavy transport vehicle or bus in traffic accident, initial encounter; I26.99 Other pulmonary embolism without acute cor pulmonale; I45.6 Pre-excitation syndrome; F17.210 Nicotine dependence, cigarettes, uncomplicated; Z79.01 Long term (current) use of anticoagulants; Z79.891 Long term (current) use of opiate analgesic
CPT/HCPCS: 36415; 70450; 71260; 72125; 72129; 72132; 73140; 74177; 80053; 85025; 85610; 85730; 99284; Q9967

== ENCOUNTER 2022-02-19 11:57 | Outpatient (CLI) | payer BC, SELFPAY ==
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
== END 2022-02-19 11:58 | disposition home or self-care (01) ==
PROVIDERS: PCP Family Medicine; Visit Provider Nurse Practitioner Family
DX: R20.0 Anesthesia of skin (principal); R20.2 Paresthesia of skin; Z79.01 Long term (current) use of anticoagulants
CPT/HCPCS: 72125

== ENCOUNTER 2022-03-27 14:10 | Outpatient (CLI) | payer BC, SELFPAY ==
--- NOTE | ~2022-03-27 | CT_ITS ---
EXAMINATION: CTA chest PE protocol DATE: 03/27/2022 14:44 INDICATION: Pulmonary embolism TECHNIQUE: Computed tomography (CT) pulmonary angiogram of the chest was performed with 100 mL Omnipa que-350 intravenous contrast. Additional 3D reconstructions utilizing coronal maximum intensity proje ction (MIP) were performed. Automated exposure control and iterative reconstruction technique were em ployed. The dose-length product was 832.79 mGy-cm. COMPARISON: 12/06/2021 FINDINGS: Excellent contrast opacification of the pulmonary arteries. There is mild streak artifact from dense contrast in the superior vena cava and right atrium. Minimal scattered respiratory motion artifact wh ich does not significantly limit evaluation. No pulmonary embolism. Mild emphysema the apices of the lungs. Mild dependent passive atelectasis in the bilateral lower lobes. No pneumonia, pulmonary edema , pleural effusion or pneumothorax. Heart size is normal. No pericardial effusion. Thoracic aorta is normal in caliber with no dissection. No pathologically enlarged thoracic lymphadenopathy. Small slid ing-type hiatal hernia. Diffuse hepatic steatosis with focal sparing along the gallbladder fossa. Chr onic anterior wedging, mild at T4 and T5 and minimally at T11 and T12. Small Schmorl's nodes along th e inferior endplates of T11 and T12 and large Schmorl's nodes along the superior end plates of T4 and T5. IMPRESSION: 1. No pulmonary embolism or other acute cardiopulmonary disease. 2. Mild biapical emphysema. Reviewed, dictated and finalized at location B. 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
[2022-03-27 14:40] LABS: Estimated Glomerular Filt Rate > 60
== END 2022-03-27 14:11 | disposition home or self-care (01) ==
PROVIDERS: PCP Family Medicine; Visit Provider Physician Assistant Medical
DX: I26.99 Other pulmonary embolism without acute cor pulmonale (principal); J43.9 Emphysema, unspecified
CPT/HCPCS: 71275; Q9967